=== PATIENT | male | born 1960 | race Caucasian/White ===

== ENCOUNTER 2020-07-15 17:34 | Observation (INO) ==
[2020-07-15 18:04] VITALS: BMI 27.1
[2020-07-15 18:44] LABS: BASOPHILS % (AUTO) 0.5 % (0.2-1.0); EOSINOPHILS # (AUTO) 0.1 x10^3/uL (0.0-0.2); EOSINOPHILS % (AUTO) 1.1 % (0.9-2.9); HEMATOCRIT 40.5 % (42.0-54.0); HEMOGLOBIN 14.1 g/dL (13.5-18.0); LYMPHOCYTES # (AUTO) 1.1 X10^3/uL (1.3-2.9); LYMPHOCYTES % (AUTO) 14.1 % (21.0-51.0); MEAN CORPUSCULAR HEMOGLOBIN 30.5 pg (27.0-34.0); MEAN CORPUSCULAR HGB CONC 34.8 g/dL (33.0-35.0); MEAN CORPUSCULAR VOLUME 87.6 fL (80.0-100.0); MEAN PLATELET VOLUME 7.6 fL (7.4-11.0); MONOCYTES # (AUTO) 0.7 x10^3/uL (0.3-0.8); MONOCYTES % (AUTO) 8.8 % (0.0-13.0); NEUTROPHILS % (AUTO) 75.5 % (42.0-75.0); PLATELET COUNT 181 X10^3/uL (150.0-450.0); RED BLOOD COUNT 4.62 X10^6/uL (4.7-6.0); RED CELL DISTRIBUTION WIDTH 13.7 % (11.6-16.5); WHITE BLOOD COUNT 7.9 X10^3/uL (3.6-10.0)
[2020-07-15 19:02] LABS: ALANINE AMINOTRANSFERASE 40 Units/L (12-78); ALBUMIN 3.6 g/dL (3.4-5.0); ALKALINE PHOSPHATASE 123 Units/L (46-116); ASPARTATE AMINO TRANSFERASE 28 Units/L (15-37); BLOOD UREA NITROGEN 23 mg/dL (7-18); CALCIUM 8.8 mg/dL (8.5-10.1); CARBON DIOXIDE 27.6 mmol/L (21-32); CHLORIDE 107 mmol/L (98-107); CKMB % 0.6 % (<4); CREATINE KINASE 323 Units/L (39-308); CREATINE KINASE MB 1.9 ng/mL (0-4.0); CREATININE 1.34 mg/dL (0.70-1.30); MAGNESIUM 2.2 mg/dL (1.7-2.9); SODIUM 142 mmol/L (136-145); TROPONIN I < 0.02 ng/mL (0-1.5); eGFR NON BLACK RACES 58 (>60)
--- NOTE | 2020-07-15 19:15 | DR.CP ---
HPI Time Seen Time Seen by Provider: 07/15/20 18:17 PCP Primary Care Physician: ALEXA HPI Comment HPI Comment: Patient presents with complaint of chest pressure that started after exertion yesterday. Thought that he may have pulled or strained a muscle in his left shoulder, but then thought that this pain was similar to pain when he had MO in February. Cardiology in [place] and he required 2 stents in February. Notes that he took 2 NTG today with partial relief so he came to the ED for eval. Complaint Chief Complaint:: PATIENT CAME TO ER REPORTS HAVING PRESSURE IN CHEST SINCE YESTERDAY. REPORTS HAVING 2 STENTS PLACED IN FEBRUARY. COVID-19 Coronavirus risk:travel/contact w/high risk person: No Has patient experienced Coronavirus symptoms: No Source History Provided: Patient Mode of Arrival Mode of Arrival: Ambulatory Timing Onset of Chief Complaint: 07/14/20 PMH PMH Past Medical History: Yes Past Medical History: Dyslipidemia and Hypertension Past Surgical History: Yes Surgical History: Angioplasty/Stents and Other Past Surgical History Comment: CARDIAC STENTS Family History History of Family Medical Conditions: Yes Family Medical History: Cancer, MO, Coronary Artery Disease and Hypertension Social History Alcohol Use: None Do you use any recreational Drugs:: No Lives With: Spouse Lives Where: Home Travel Risk Coronavirus risk:travel/contact w/high risk person: No Has patient experienced Coronavirus symptoms: No Infectious screening In the last 2 months have you had wt loss of >10#?: NO Have you traveled outside the country in the last 6 months?: No Isolation: Standard ROS Review of Systems Constitutional: See HPI Cardiovascular: Chest Pain All Other Systems: Reviewed and Negative PE Vitals Vitals: Temperature 98.3 F Pulse Rate [Apical] 87 Pulse Rate 70 Respiratory Rate 20 Blood Pressure [Left Arm] 157/92 Blood Pressure 136/81 O2 Sat by Pulse Oximetry 99 General Limitations: No Limitations General Appearance: Alert and In No Apparent Distress Head Head Exam: Normal Inspection and Atraumatic Eyes Eye exam: Normal Appearance, PERRL and EOMI ENT ENT Exam: Normal Exam Chest Chest Inspection: Normal Inspection and Symmetric Chest Wall Rise Respiratory Respiratory Exam: Normal Lung Sounds Bilat Respiratory Exam: Bilateral: Clear to Auscultation Cardiovascular Cardiovascular Exam: Regular Rate, Normal Rhythm and Normal Heart Sounds Abdominal Exam Abdominal Exam: Normal Inspection, Normal Bowel Sounds and Soft Extremities Extremities Exam: Normal Inspection Neurologic Neurological Exam: Alert and Oriented X3 Psychiatric Psychiatric Exam: Normal Affect and Normal Mood Skin Skin Exam: Warm, Dry and Intact COURSE Reevaluation 1st: Unchanged (Initially did not want anything for pain, but now is requesting pain medication. ) ROR Labs Reviewed Laboratory Results Reviewed?: Yes Result Diagrams: 07/15/20 18:07/15/20 18 Laboratory: WBC 7.9 X10^3/uL (3.6-10.0) 07/15/20 RBC 4.62 X10^6/uL (4.7-6.0) L 07/15/20: Hgb 14.1 g/dL (13.5-18.0) 07/15/20 Hct 40.5 % (42.0-54.0) L 07/15/20 MCV 87.6 fL (80.0-100.0) 07/15/20: MCH 30.5 pg (27.0-34.0) 07/15/20 MCHC 34.8 g/dL (33.0-35.0) 07/15/20 RDW 13.7 % (11.6-16.5) 07/15/20 Plt Count 181 X10^3/uL (150.0-450.0) 07/15/20 MPV 7.6 fL (7.4-11.0) 07/15/20 Neut % (Auto) 75.5 % (42.0-75.0) H 07/15/20 Lymph % (Auto) 14.1 % (21.0-51.0) L 07/15/20: Butts % (Auto) 8.8 % (0.0-13.0) 07/15/20 Eos % (Auto) 1.1 % (0.9-2.9) 07/15/20 Baso % (Auto) 0.5 % (0.2-1.0) 07/15/20 Neut # (Auto) 6.0 x10^3/uL (2.2-4.8) H 07/15/20 Lymph # (Auto) 1.1 X10^3/uL (1.3-2.9) L 07/15/20 18: Butts # (Auto) 0.7 x10^3/uL (0.3-0.8) 07/15/20 18: Eos # (Auto) 0.1 x10^3/uL (0.0-0.2) 07/15/20 18: Baso # (Auto) 0.0 X10^3/uL (0.0-0.1) 07/15/20 18: Absolute Nucleated RBC 0.0 /100WBC 07/15/20 18: PT 14.0 SECONDS (11.8-14.3) 07/15/20 18: INR Target Range - 07/15/20: INR 1.13 (0.8-1.3) 07/15/20 18: APTT 26.1 SECONDS (22.9-36.5) 07/15/20 18: PTT Comment - 07/15/20 18: Sodium 142 mmol/L (136-145) 07/15/20 18: Corrected Sodium TNP 07/15/20 18: Potassium 4.4 mmol/L (3.5-5.1) 07/15/20 18: Chloride 107 mmol/L (98-107) 07/15/20 18: Carbon Dioxide 27.6 mmol/L (21-32) 07/15/20 18: BUN 23 mg/dL (7-18) H 07/15/20 18: Creatinine 1.34 mg/dL (0.70-1.30) H 07/15/20 18: Est GFR (MDRD) Af Amer > 60 (>60) 07/15/20 18: Est GFR (MDRD) Non-Af 58 (>60) L 07/15/20 18: Glucose 105 mg/dL (65-99) H 07/15/20 18: Calcium 8.8 mg/dL (8.5-10.1) 07/15/20 18: Corrected Calcium TNP 07/15/20 18: Magnesium 2.2 mg/dL (1.7-2.9) 07/15/20 18: Total Bilirubin 0.70 mg/dL (0.2-1.0) 07/15/20 18:27 AST 28 Units/L (15-37) 07/15/20 18:27 ALT 40 Units/L (12-78) 07/15/20 18:27 Alkaline Phosphatase 123 Units/L (46-116) H 07/15/20 18:27 Creatine Kinase 323 Units/L (39-308) H 07/15/20 18:27 CK-MB (CK-2) 1.9 ng/mL (0-4.0) 07/15/20 18:27 CK/CKMB % Calc 0.6 % (<4) 07/15/20 18:27 Troponin I < 0.02 ng/mL (0-1.5) 07/15/20 18:27 Total Protein 7.0 g/dL (6.4-8.2) 07/15/20 18:27 Albumin 3.6 g/dL (3.4-5.0) 07/15/20 18:27 Globulin 3.4 g/dL (2.5-4.5) 07/15/20 18:27 Albumin/Globulin Ratio 1.1 Ratio (1.1-2.1) 07/15/20 18:27 Opioid Opioid Risk Tool Age (Alex box if 16-45): No History of Preadolescent Sexual Abuse: No Total: 0 Total Score Risk Category: Low Risk Copyright: Antony PAT predicting aberrant behaviors Diagnosis Discharge Problem: Chest pain Qualifiers: Chest pain type: unspecified Qualified Code(s): R07.9 - Chest pain, unspecified
--- NOTE | 2020-07-15 20:04 | RAD ---
HISTORYChest painSTUDYCHEST, 1 [id number]/18/2021FINDINGSThere is cardiac enlargement without significant pulmonary vasculature congestion. No focal airspace consolidation. No pleural effusion or pneumothorax.IMPRESSIONMild cardiac enlargement without overt failure or other acute chest process.Electronically signed by: Mckinley Quezada (July 15, 2020 20:03:14)
[2020-07-15] MEDS ORDERED: MORPHINE SULFATE INJ 2 MG INJ ONE (20:26)
[2020-07-15] MEDS: MORPHINE SULFATE INJ 2 MG INJ IVP ONE (20:29)
[2020-07-15] MEDS ORDERED: MORPHINE SULFATE INJ 2 MG INJ IVP PRN (21:40)
[2020-07-15] MEDS ORDERED: NITROSTAT SL PRN (21:40)
[2020-07-15] MEDS ORDERED: NS 1000 ML 1,000 ML IV SCH (22:00)
[2020-07-15 22:17] LABS: CKMB % 0.5 % (<4); CREATINE KINASE 299 Units/L (39-308); CREATINE KINASE MB 1.5 ng/mL (0-4.0); TROPONIN I < 0.02 ng/mL (0-1.5)
[2020-07-15] MEDS ORDERED: LOPERAMIDE 2 MG PO PRN (22:17)
[2020-07-15] MEDS ORDERED: ATIVAN INJ 2 MG VIAL ONE (22:19)
[2020-07-15] MEDS ORDERED: NS 1000 ML 1,000 ML ONE (22:19)
[2020-07-15] MEDS ORDERED: ATIVAN INJ 2 MG VIAL IVP ONE (22:30)
[2020-07-16] MEDS ORDERED: IMODIUM CAP 2 MG PO PRN (00:09)
[2020-07-16 05:44] LABS: BASOPHILS % (AUTO) 0.7 % (0.2-1.0); EOSINOPHILS # (AUTO) 0.1 x10^3/uL (0.0-0.2); EOSINOPHILS % (AUTO) 2.4 % (0.9-2.9); HEMATOCRIT 38.8 % (42.0-54.0); HEMOGLOBIN 13.6 g/dL (13.5-18.0); LYMPHOCYTES # (AUTO) 1.4 X10^3/uL (1.3-2.9); LYMPHOCYTES % (AUTO) 22.2 % (21.0-51.0); MEAN CORPUSCULAR HEMOGLOBIN 30.8 pg (27.0-34.0); MEAN CORPUSCULAR HGB CONC 35.1 g/dL (33.0-35.0); MEAN CORPUSCULAR VOLUME 87.5 fL (80.0-100.0); MONOCYTES # (AUTO) 0.7 x10^3/uL (0.3-0.8); MONOCYTES % (AUTO) 10.8 % (0.0-13.0); NEUTROPHILS # (AUTO) 3.9 x10^3/uL (2.2-4.8); NEUTROPHILS % (AUTO) 63.9 % (42.0-75.0); PLATELET COUNT 159 X10^3/uL (150.0-450.0); RED BLOOD COUNT 4.44 X10^6/uL (4.7-6.0); RED CELL DISTRIBUTION WIDTH 13.6 % (11.6-16.5); WHITE BLOOD COUNT 6.1 X10^3/uL (3.6-10.0)
[2020-07-16 06:14] LABS: ALANINE AMINOTRANSFERASE 36 Units/L (12-78); ALBUMIN 3.2 g/dL (3.4-5.0); ALKALINE PHOSPHATASE 114 Units/L (46-116); ASPARTATE AMINO TRANSFERASE 24 Units/L (15-37); BLOOD UREA NITROGEN 22 mg/dL (7-18); CALCIUM 8.3 mg/dL (8.5-10.1); CHLORIDE 107 mmol/L (98-107); CHOL/HDL RATIO 2.9 (0.0-5.0); CHOLESTEROL 108 mg/dL (0-200); CKMB % 0.6 % (<4); COR CA(FOR HYPOALB) 8.9 mg/dL (8.5-10.1); CREATINE KINASE 227 Units/L (39-308); CREATINE KINASE MB 1.3 ng/mL (0-4.0); CREATININE 1.02 mg/dL (0.70-1.30); HDL CHOLESTEROL 37 mg/dL (40-60); SODIUM 142 mmol/L (136-145); TOTAL PROTEIN 6.4 g/dL (6.4-8.2); TRIGLYCERIDES 118 mg/dL (0-150); TROPONIN I < 0.02 ng/mL (0-1.5); eGFR NON BLACK RACES > 60 (>60)
[2020-07-16] MEDS ORDERED: LOPRESSOR TAB 50 MG PO SCH (09:00)
[2020-07-16] MEDS ORDERED: PLAVIX PO SCH (09:00)
[2020-07-16] MEDS ORDERED: PEPCID TAB 40 MG PO SCH (09:00)
[2020-07-16 10:24] LABS: CKMB % 0.7 % (<4); CREATINE KINASE 219 Units/L (39-308); CREATINE KINASE MB 1.5 ng/mL (0-4.0); TROPONIN I < 0.02 ng/mL (0-1.5)
[2020-07-16 11:30] VITALS: BP 143/82
--- NOTE | 2020-07-30 09:04 | DR.CARTERS ---
Short Stay Summary - Admission Date Date of Admission: 07/15/20 - Discharge Date Discharge Date: 07/16/20 - Admission Diagnoses (1) Chest pain, rule out acute myocardial infarction Status: Acute - Hospital Course Hospital Course: IS A 60 YEAR OLD WHITE MALE PATIENT OF DANNY CALLAHAN. HE PRESENTED TO THE ER FOR COMPLAINTS OF CHEST PAIN AND LEFT SHOULDER PAIN. PAIN STARTED ONE DAY PRIOR. INITIALLY HE THOUGHT THAT HE MAY HAVE STRAINED A MUSCLE IN THE LEFT SHOULDER, BUT THEN THOUGHT THAT PAIN WAS SIMILAR TO WHEN HE HAD A WV IN FEBRUARY. HE REQUIRED TWO STENTS OF WV IN FEBRUARY. HE REPORTED TAKING TWO NITROGLYCERINE PRIOR TO PRESENTATION WITH PARTIAL RELIEF OF PAIN. PAIN COMES AND GOES. HE DESCRIBED IT NON-RADIATING, PRESSURE AND SHARP AT TIMES. PAIN ON ARRIVAL TO THE ER WAS RATED A 4/10. HE DENIED N/V OR DIAPHORESIS. PATIENTS PMH INCLUDES DYSLIPIDEMIA, HTN, AND CARDIAC STENTS. ON ARRIVAL TO THE ER, VITALS WERE 98.3-70-18-98%-127/73. LABS WERE OBTAINED. ABNORMAL LAB VALUES INCLUDED THE FOLLOWING: RBC 4.62, HCT 40.5, BUN 23, CREATININE 1.34, GLUCOSE 105, ALK PHOS 123, CREATINE KINASE 323. CARDIAC ENZYMES WERE WITHIN NORMAL LIMITS. EKG REVEALED: SINUS RHYTHM WITH HR 68. CHEST XRAY REVEALED: Mild cardiac enlargement without overt failure or other acute chest process. IN THE ER, HE WAS GIVEN ATIVAN 2MG IV X 1, MORPHINE 2MG IV X 1. HE REPORTED SLIGHT IMPROVEMENT IN PAIN. HE WAS ADMITTED TO THE HOSPITAL FOR FURTHER EVALUATION AND TREATMENT OF CHEST PAIN RULE OUT ACUTE WV. HE WAS STARTED ON NORMAL SALINE AT 75 ML/HR, MORPHINE SULFATE 2MG IV Q2H PRN PAIN, NITROSTAT 0.4MG SL Q5M PRN, LOPRESSOR 50MG PO BID, PEPCID 40MG PO BID, AND PLAVIX 75MG PO DAILY. WE PLANNED TO OBTAIN SERIAL CARDIAC ENZYMES AND EKGS. OTHERWISE, WE PLANNED TO FOLLOW UP WITH AM LABS AND CONTINUE TO MONITOR. ON THE MORNING FOLLOWING ADMISSION, PATIENT IS ALERT AND ORIENTED, SITTING UP IN BED ON MORNING ROUNDS. HE DENIES COMPLAINTS TODAY AND IS REQUESTING DISCHARGE HOME. ON EXAMINATION, HEART IS REGULAR IN RATE AND RHYTHM. BILATERAL LUNGS ARE NOTED WITH DIMINISHED LUNG SOUNDS THROUGHOUT. ABDOMEN IS ROUND, SOFT, AND NON- TENDER WITH NORMAL BOWEL SOUNDS NOTED IN ALL QUADRANTS. HIS VITALS THIS MORNING ARE: 97.4-74-18-99%-143/82. LABS WERE OBTAINED. ABNORMAL LAB VALUES INCLUDE THE FOLLOWING: WBC 6.1, RBC 4.44, HCT 38.8, BUN 22, CALCIUM 8.3, ALBUMIN 3.2, HCL 37. CARDIAC ENZYMES HAVE BEEN WITHIN NORMAL LIMITS. NO CHANGES NOTED TO EKGs. WE PLANNED FOR DISCHARGE. INSTRUCTIONS FOR MEDICATIONS AND FOLLOW UP WERE DISCUSSED WITH PATIENT AND FAMILY. THEY VERBALIZED UNDERSTANDING OF ALL ORDERS. HE WAS DISCHARGED HOME WITH FAMILY IN STABLE CONDITION. HE WAS INSTRUCTED TO CONTINUE HIS CURRENT MEDICATIONS OF ASPIRIN, ATORVASTATIN, BRILINTA, VITAMIN D, METOPROLOL TARTRATE, OMEPRAZOLE, AND CARAFATE. HE WAS INSTRUCTED TO FOLLOW UP IN THE OFFICE IN ONE WEEK. TIME SPENT ON CLINICAL ASSESSMENT, REVIEWING LABS AND IMAGING, DECISION MAKING, PREPARING DISCHARGE PAPERS, AND DOCUMENTATION WAS GREATER THAN 75 MINUTES. - Discharge Medications Discharge Medications: Home Medication List Brilinta 90 mg PO BID 07/16/20 [History] aspirin 81 mg PO DAILY 07/16/20 [History] atorvastatin 80 mg PO QHS 07/16/20 [History] ergocalciferol (vitamin D2) [Vitamin D2] 1,250 mcg PO QWEEK 07/16/20 [History] metoprolol tartrate 50 mg PO BID 07/16/20 [History] omega-3 fatty acids 2,000 mg PO BID 07/16/20 [History] omeprazole 40 mg PO DAILY 07/16/20 [History] sucralfate [Carafate] 1 g PO BID 07/16/20 [History] Prescriptions: - Discharge Plan Disposition: 01 HOME, SELF-CARE Condition: Stable - Follow up/Referrals Follow up/Referrals: Sarahy [Other] - 07/26/20 1:00 pm BETHEL VIZCARRA [Primary Care Provider] - 07/16/20 11:07 am (Office declined to make follow up appointment at time of discharge due to outstanding fees.) - Instructions Instructions: Hand Washing, [id number], Nonspecific Chest Pain, [id number], Hypertension, [id number], Form - Blood Pressure Record Sheet, Managing Your Hypertension Additional Instructions: DIET TOLERATED. ACTIVITY TOLERATED. FOLLOW UP WITH INFORMATION DIRECTOR Forms: Excuse From Work or School, Precautions for COVID19, Patient Portal, Social Distancing
== END 2020-07-16 11:40 | disposition home or self-care (01) ==
LOC: MED/SURG 17:57 → ER 17:57 → MED/SURG 22:32
PROVIDERS: ADMIT Internal Medicine; ATTEND Internal Medicine
DX: I10 Essential (primary) hypertension; Z79.01 Long term (current) use of anticoagulants; R07.89 Other chest pain; Z95.5 Presence of coronary angioplasty implant and graft; E78.2 Mixed hyperlipidemia